=== PATIENT | male | born 1985 | race American Indian/Alaskan Native ===

== ENCOUNTER 2021-11-28 21:23 | Emergency (ER) | payer SELFPAY ==
--- NOTE | 2021-11-29 04:32 | Emergency Department Report ---
ED General Adult HPI - General Chief complaint: Sore Throat Stated complaint: SORE THROAT Time Seen by Provider: 11/29/21 04:09 Source: patient Mode of arrival: Ambulatory Limitations: No Limitations - History of Present Illness Initial comments: 36-year-old -[place] male with no sniffing past medical history presents to the emergency department complaining of a 2 to 3-day history of progressive worsening sore throat and a lump to the left of his throat. Lump is tender with palpation and has been there throughout the duration of his sore throat or neck pain. Reports no hemoptysis symptoms hematochezia, no fever, chills, night sweats, weight loss. No known sick contacts, no abdominal pain or nausea vomiting. -: Gradual Radiation: non-radiation Quality: burning Improves with: none Worsens with: none Associated Symptoms: denies other symptoms Treatments Prior to Arrival: none - Related Data Previous Rx's Medication Instructions Recorded Last Taken Type Amoxicillin [Amoxicillin TAB] 875 mg PO BID #20 tablet 11/29/21 Unknown Rx Chlorhexidine Mouthwash [Peridex] 15 ml MM BID #1 bottle 11/29/21 Unknown Rx ED Review of Systems ROS: Stated complaint: SORE THROAT Other details as noted in HPI Comment: All other systems reviewed and negative ED Past Medical Hx - Medications Home Medications: Home Medications Medication Instructions Recorded Confirmed Last Taken Type Amoxicillin [Amoxicillin TAB] 875 mg PO BID #20 tablet 11/29/21 Unknown Rx Chlorhexidine Mouthwash [Peridex] 15 ml MM BID #1 bottle 11/29/21 Unknown Rx ED Physical Exam - General Limitations: No Limitations General appearance: alert, in no apparent distress - Head Head exam: Present: atraumatic, normocephalic - Eye Eye exam: Present: normal appearance, PERRL - ENT ENT exam: Present: mucous membranes moist, other - Expanded ENT Exam Expanded Mouth exam: Absent: drooling, trismus, muffled voice Throat exam: Positive: tonsillar erythema. Negative: tonsillar exudate - Neck Neck exam: Present: normal inspection, lymphadenopathy (Left tonsillar node) - Respiratory Respiratory exam: Present: normal lung sounds bilaterally. Absent: respiratory distress, wheezes, rales, rhonchi, accessory muscle use, decreased breath sounds - Cardiovascular Cardiovascular Exam: Present: regular rate, normal rhythm. Absent: systolic murmur, diastolic murmur, rubs, gallop - GI/Abdominal GI/Abdominal exam: Present: soft, normal bowel sounds - Rectal Rectal exam: Present: deferred - Extremities Exam Extremities exam: Present: normal inspection - Back Exam Back exam: Present: normal inspection. Absent: CVA tenderness (R), CVA tend erness (L) - Neurological Exam Neurological exam: Present: alert, oriented X3, CN II-XII intact - Psychiatric Psychiatric exam: Present: normal affect, normal mood - Skin Skin exam: Present: warm, dry, intact, normal color. Absent: rash ED Course Vital Signs 11/28/21 21:49 Temperature 98.3 F Pulse Rate 72 Respiratory 18 Rate Blood Pressure 130/86 O2 Sat by Pulse 99 Oximetry ED Medical Decision Making - Medical Decision Making 36-year-old [place] male [facility] emerge department complaining of sore throat with involvement swelling to the left lower and left side of unknown etiology. No known sick contacts. Symptoms continue to evolve he was placed on antibiotics advised follow-up with primary care provider to ensure that the antibiotics are not back improving the symptoms or further testing is demonstrated the symptoms emerge - Differential Diagnosis Lymphoma, GERD, postnasal drip, viral pharyngitis Critical care attestation.: If time is entered above; I have spent that time in minutes in the direct care of this critically ill patient, excluding procedure time. ED Disposition Clinical Impression: Pharyngitis, Lymphadenopathy Disposition: 01 HOME / SELF CARE / HOMELESS Is pt being admited?: No Does the pt Need Aspirin: No Condition: Stable Instructions: Lymphadenopathy, Pharyngitis, Sore Throat Referrals: JOHN GAVIN MD [Staff Physician] - 3-5 Days
[2021-11-29 06:06] VITALS: BP 130/85
== END 2021-11-29 05:23 | disposition home or self-care (01) ==
LOC: ED 21:23
DX: J02.9 Acute pharyngitis, unspecified (principal); R59.1 Generalized enlarged lymph nodes; Z79.899 Other long term (current) drug therapy
CPT/HCPCS: 99282